=== PATIENT | female | born 1975 | race Caucasian/White ===

== ENCOUNTER 2017-08-23 09:42 | Observation (INO) | payer OTHER, BC ==
[~2017-08-23] VITALS: Ht 165.1 cm; Wt 87.9 kg
[~2017-08-23 09:42] MED LIST: B-121000 MC2 PO; COZAAR50 MG PO; FISH OIL 1,0001 EAC7 PO; GLUCOPHAGE1000 MG PO; LEVEMIR100 UNIT/2 SC; LIPITOR80 MG PO; LO-DOSE ASPIRIN81 M1 PO; NEURONTIN800 MG PO; OXYCODONE HCL10 MG PO; VICTOZA SC
[2017-08-23] MEDS ORDERED: MEDROL DOSEPAK4 MG PO (11:40)
[2017-08-23] MEDS ORDERED: FLEXERIL10 MG PO (11:40)
[2017-08-23 13:31] LABS: BASOPHIL (%) 0.5 % (0-1); EOSINOPHIL (%) 0.8 % (0-5); EOSINOPHIL COUNT 0.1 K/uL (0-0.3); HEMATOCRIT 43.7 % (36.0-46.0); HEMOGLOBIN 15.1 G/DL (11.9-15.5); IMMATURE GRANULOCYTE (%) 0.4 % (0.0-0.7); LYMPHOCYTE (%) 25.8 % (15-42); LYMPHOCYTE COUNT 2.1 K/uL (1.0-2.8); MCH 28.9 PG (29.0-34.0); MCHC 34.6 G/DL (30.0-36.0); MCV 83.7 FL (83-99); MONOCYTE (%) 8.3 % (3-12); MONOCYTE COUNT 0.7 K/uL (0-0.8); NEUTROPHIL (%) 64.2 % (45-76); NEUTROPHIL COUNT 5.1 K/uL (1.8-6.4); PLATELET COUNT 336 K/uL (156-360); RBC DIS.WIDTH-CV 12.4 % (11.8-14.6); RBC DIS.WIDTH-SD 38.1 % (39-53); RED BLOOD COUNT 5.22 M/uL (3.80-5.20)
[2017-08-23 13:34] LABS: CHLORIDE 103 mEq/L (99-109); POTASSIUM 3.9 mEq/L (3.7-5.4); SODIUM 136 mEq/L (136-147)
[2017-08-23 13:35] LABS: GLUCOSE 214 mg/dL (70-99)
[2017-08-23] MEDS ORDERED: VICTOZA 2-0.6 MG/0.1 SC (13:37)
[2017-08-23] MEDS ORDERED: OXYCONTIN30 MG PO (13:37)
[2017-08-23] MEDS ORDERED: PERCOCET 10/1 TABLET PO (13:38)
[2017-08-23] MEDS ORDERED: MOBIC15 MG PO (13:38)
[2017-08-23 13:39] LABS: CREATININE 0.7 mg/dL (0.6-1.3); GFR ESTIMATE (CALCULATED) > 59 mL/min/
[2017-08-23 13:40] LABS: UREA NITROGEN (BUN) 10 mg/dL (9-23)
[2017-08-23 15:50] VITALS: BP 140/67
[2017-08-23 20:00] VITALS: BP 123/70
[2017-08-24 00:26] VITALS: BP 141/77
[2017-08-24 08:11] VITALS: BP 141/71
[2017-08-24 10:29] LABS: HEMOGLOBIN A1c (GLYCOHEMOGLOB) 9.4 % (Below 5.7)
[2017-08-24 11:29] VITALS: BP 143/79
[2017-08-24 20:00] VITALS: BP 111/59
[2017-08-25 00:49] VITALS: BP 128/64
[2017-08-25 05:43] LABS: BASOPHIL (%) 0.2 % (0-1); EOSINOPHIL (%) 0 % (0-5); HEMATOCRIT 46.1 % (36.0-46.0); HEMOGLOBIN 15.3 G/DL (11.9-15.5); IMMATURE GRANULOCYTE (%) 0.5 % (0.0-0.7); LYMPHOCYTE (%) 7.9 % (15-42); LYMPHOCYTE COUNT 1.1 K/uL (1.0-2.8); MCH 27.7 PG (29.0-34.0); MCHC 33.2 G/DL (30.0-36.0); MCV 83.5 FL (83-99); MONOCYTE (%) 3.8 % (3-12); MONOCYTE COUNT 0.5 K/uL (0-0.8); NEUTROPHIL (%) 87.6 % (45-76); NEUTROPHIL COUNT 11.8 K/uL (1.8-6.4); PLATELET COUNT 389 K/uL (156-360); RBC DIS.WIDTH-CV 12.1 % (11.8-14.6); RBC DIS.WIDTH-SD 36.9 % (39-53); RED BLOOD COUNT 5.52 M/uL (3.80-5.20); WHITE BLOOD COUNT 13.5 K/uL (4.1-10.2)
[2017-08-25 06:06] LABS: CHLORIDE 95 MEQ/L (99-109); CREATININE 0.5 MG/DL (0.6-1.3); GFR ESTIMATE (CALCULATED) > 59 mL/min/; GLUCOSE 223 mg/dL (70-99); POTASSIUM 4.8 MEQ/L (3.7-5.4); SODIUM 144 MEQ/L (136-147); UREA NITROGEN (BUN) 15 mg/dL (9-23)
[2017-08-25 08:15] VITALS: BP 126/70
[2017-08-25] MEDS ORDERED: CYCLOBENZAPRINE5 MG PO (10:47)
[2017-08-25] MEDS ORDERED: DOCUSATE SODIU1 EACH PO (10:47)
[2017-08-25] MEDS ORDERED: MEDROL DOSEPAK4 MG PO (10:47)
[2017-08-25] MEDS ORDERED: OXYCODONE HCL5 MG PO (10:47)
[2017-08-25 11:43] VITALS: BP 107/59
== END 2017-08-25 16:08 | disposition home or self-care (01) ==
LOC: EME 09:42 → EDOF 13:41 → 5WEST 13:41 → ENRESERV 13:42 → 5WEST 15:21
PROVIDERS: Emergency Medicine; Internal Medicine
DX: G89.29 Other chronic pain (principal); M16.12 Unilateral primary osteoarthritis, left hip; M54.32 Sciatica, left side; R26.89 Other abnormalities of gait and mobility; E11.9 Type 2 diabetes mellitus without complications; Q66.89 Other specified congenital deformities of feet; Z98.1 Arthrodesis status; E78.5 Hyperlipidemia, unspecified; I10 Essential (primary) hypertension; Z98.890 Other specified postprocedural states; E78.00 Pure hypercholesterolemia, unspecified; H54.7 Unspecified visual loss; F17.200 Nicotine dependence, unspecified, uncomplicated; Z82.49 Family history of ischemic heart disease and other diseases of the circulatory system; Z83.3 Family history of diabetes mellitus; Z79.82 Long term (current) use of aspirin; Z79.4 Long term (current) use of insulin; Z79.891 Long term (current) use of opiate analgesic; Z87.828 Personal history of other (healed) physical injury and trauma
CPT/HCPCS: 73502; 73700; 80048; 82948; 83036; 85025; 85652; 86140; 97530 GP; 99281; 99285; G0378; G8978 GP CM; G8979 GP CI; G8980 GP CI; G8987 GO CL; G8988 CI; G8989 GO CI; J1040; J1100; J1650; J1815; J2270; J2930